=== PATIENT | female | born 1985 | race Asian ===

== ENCOUNTER 2019-07-19 18:00 | Emergency (ER) | payer OTHER ==
[~2019-07-19] VITALS: Ht 170.2 cm; Wt 79.8 kg
--- NOTE | 2019-07-19 18:10 | NUR ---
BIB FOR COUGH, CHILLS AND BODY ACHE x 1 DAY, 20WEEKS AND 3 DAYS , A1. O ER BED 10, HOOKED TO MONITOR, CHANGED TO [facility] GOWN, PROVIDED W WARM BLANKET, AWAITING MD HERNANDEZ
--- NOTE | 2019-07-19 18:18 | NUR ---
BEHAVIORAL HEALTH RN DEGRASSE AT BEDSIDE
[2019-07-19] MEDS ORDERED: ACETAMINOPHEN ES 500 MG TABLET ONE (18:28)
[2019-07-19] MEDS ORDERED: ACETAMINOPHEN ES 500 MG TABLET PO ONE (18:30)
--- NOTE | 2019-07-19 18:41 | NUR ---
RAPID FLU SWAB SENT TO LAB
--- NOTE | 2019-07-19 19:20 | NUR ---
REPORT GIVEN TO MIGUELANGEL TANG FOR NGOC
--- NOTE | 2019-07-19 19:22 | NUR ---
PT RECEIVED FROM KITTY DILLARD FOR [facility]OC
--- NOTE | 2019-07-19 19:48 | NUR ---
HEART AND US DONE BY TYLER LOZADA AT BEDSIDE
--- NOTE | 2019-07-19 19:53 | NUR ---
Patient discharged to home in stable condition. Written and verbal after care instructions given. Patient verbalizes understanding of instruction. Pt ambulatory with a steady gait
[2019-07-19 19:54] VITALS: BP 112/57
== END 2019-07-19 19:54 | disposition home or self-care (01) ==
LOC: ER 18:01
DX: O99.512 Diseases of the respiratory system complicating pregnancy, second trimester (principal); R05 Cough; R50.9 Fever, unspecified; Z3A.20 20 weeks gestation of pregnancy